=== PATIENT | male | born 1945 | race Caucasian/White ===

== ENCOUNTER → 2018-01-25 13:52 | Outpatient (CLI) | payer OTHER, SELFPAY ==
--- NOTE | 2018-01-28 15:59 | PM.PFT.1 ---
Pulmonary Function Test Referral & Results Date Patient Seen: 01/25/18 Requesting provider: Jermaine Gaston Results: The spirometry demonstrates an FVC of 3.47 L which is 102% of predicted. The FEV1 was measured at 2.04 L which is 79% of predicted. The FEV1/FVC ratio was 59 which is 70% of predicted. Following the administration of bronchodilator there was a 35% improvement in FEF 25-75%. Lung volumes show an SVC of 3.51 L which is wonder 9% of predicted. The diffusing capacity was measured at 40.0 to which is 135% of predicted. The maximum voluntary ventilation was reduced. Interpretation: This study demonstrates perhaps mild obstructive lung disease with some limited evidence of benefit following bronchodilator administration, particularly small airway flow as demonstrated by the improvement in FEF 25-75%.
== END ==
PROVIDERS: Family Provider Family Medicine; PCP Family Medicine; Visit Provider Family Medicine
DX: R06.00 Dyspnea, unspecified (principal)
CPT/HCPCS: 94010; 94060; 94726; 94729

== ENCOUNTER → 2019-05-01 11:25 | Outpatient (CLI) | payer OTHER, SELFPAY ==
[2019-05-01 11:41] LABS: Hematocrit 32.8 % (41-53); Hemoglobin 11.4 g/dL (13.5-17.5); Mean Corpuscular HGB Conc 34.7 % (30-36); Mean Corpuscular Hemoglobin 35.9 PG (26-34); Mean Corpuscular Volume 103.6 fL (80-100); Platelet Count 151 X10^3/uL (150-400); Red Blood Cell Count 3.16 X10^6/uL (4.5-5.9); Red Cell Distribution Width 16.4 % (11.6-14.8)
[2019-05-01 11:43] LABS: Add Manual Diff / Slide Review YES; White Blood Cell Count 1.2 X10^3/uL (4.5-11.0)
[2019-05-01 12:00] LABS: Neutrophils Absolute Manual 336 /uL (3000-5900); Total Cells Counted 100
[2019-05-01 12:01] LABS: Anisocytosis 1+; Poikilocytosis 1+
[2019-05-01 12:12] LABS: Alanine Aminotransferase 24 IU/L (21-72); Albumin 4.5 g/dL (3.5-5.0); Albumin Globulin Ratio 1.8 (1.0-2.8); Alkaline Phosphatase 79 U/L (38-126); Aspartate Aminotransferase 27 IU/L (17-59); BUN Creatinine Ratio 32.5 (6-22); Blood Urea Nitrogen 26 mg/dL (9-20); Calcium 9.7 mg/dL (8.4-10.2); Carbon Dioxide 26 mmol/L (22-32); Chloride 107 mmol/L (98-107); Estimated Glomerular Filt Rate > 60.0 mL/min (>60); Globulin 2.5 g/dL (1.7-4.1); Glucose 92 mg/dL (80-110); HEMOLYSIS < 15 (0-50); Potassium 4.1 mmol/L (3.4-5.1); Sodium 143 mmol/L (137-145)
== END ==
PROVIDERS: PCP Family Medicine
DX: D64.9 Anemia, unspecified (principal)
CPT/HCPCS: 36415; 80053; 85025

== ENCOUNTER → 2019-06-07 15:51 | Oncology outpatient (ONC) | payer OTHER, SELFPAY ==
[2019-03-29 10:02] VITALS: BP 133/86; PULSE 69; RESP 18; TEMP 36.6; O2SAT 98
--- NOTE | 2019-03-29 10:45 | ONC.CONS ---
History of Present Illness - Data of Consult Consult date: 03/29/19 Primary Care Provider: Jermaine Gaston MD - Consult Narrative Narrative: Diagnosis: Anemia and leukopenia History of present illness: Elmer Rosales is a 73 year old male who is referred for further evaluation of leukopenia and anemia. Patient reports that he has previously been in excellent health. Over the last several months, he has developed some worsening shortness of breath. The seems to occur mostly after he has eaten. He is only able to walk 30 or 40 he steps before he needs to stop and rest for a few seconds. He is unable to continue on his way. If he stretches and has not eaten for a couple hours, he is able to exercise. He previously was a distant runner but now power walks. He is able to complete a 2.6 mi loop in about 47 minutes. He does this without any excessive dyspnea. He does this exercise about 3 or 4 days per week. He has had fairly good appetite but has had some satiety. He has not had any nausea or vomiting. Overall, he feels like his caloric intake has dropped over the last year. He has lost almost 15 lb unintentionally. He has not noticed any adenopathy. No fevers chills or sweats. He was on a course of antibiotics for bronchitis. He has not had any other new medications. He has had occasional dizziness or lightheadedness. No new aches or pains. Bowels have been moving normally. He has not been aware of any unusual bleeding but does bruise easily. He is otherwise without complaint. As part of his evaluation, he had a CBC done on March 10. It showed a white count of 3.1, hemoglobin 11.2 hematocrit 32.5 with an MCV of 104. Platelets were 161,000. Differential showed 32% neutrophils 61% lymphocytes. His absolute neutrophil count was only 400. He did have significant number of nucleated red cells. His past medical history is otherwise fairly unremarkable. He hospitalized years ago for a pneumonia. His only medication is now albuterol inhaler. He was on a course of antibiotics. He notes allergies to penicillin and sulfa. He also has a number of food allergies including dairy. 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 He has never smoked. He has rare alcohol use. He is . He does exercise regularly. Family history: The patient is estranged from his family and does not know of any family history of malignancy or blood dyscrasias. CC: Long Olvera MD Home Medications and Allergies Home Medications Medication Instructions Recorded Confirmed Type albuterol sulfate [ProAir HFA] 2 puff INHALATION BID 03/29/19 03/29/19 History inhalational spacing device 03/29/19 03/29/19 History [Aerochamber MV] Allergies Allergy/AdvReac Type Severity Reaction Status Date / Time Penicillins Allergy Unknown Fever Verified 03/29/19 10:05 sulfamethoxazole Allergy Unknown Fever Verified 03/29/19 10:06 [From ] trimethoprim [From ] Allergy Unknown Fever Verified 03/29/19 10:06 Review of Systems Constitutional: weight loss, normal activity level Ears, nose, mouth, throat: lightheadedness, no headaches Cardiovascular: dyspnea on exertion, no chest pain, no palpitations, no orthopnea, no edema Respiratory: no cough Gastrointestinal: change in appetite, no abdominal pain, no vomiting, no constipation, no diarrhea Musculoskeletal: no pain Integumentary: no rash Hematologic/Lymphatic: no enlarged lymph nodes Exam Vital signs: Vital Signs Temp Pulse Resp BP Pulse Ox 03/29/19 10:02 97.8 F 69 18 133/86 98 Intake and Output 03/28/19 03/29/19 03/29/19 23:59 07:59 15:59 Other: Weight 75 kg Patient Weight 03/29/19 23:59 Weight 75 kg - Constitutional positive no acute distress, positive average body habitus - Routine HEENT Exam Head: Present: normocephalic, atraumatic Eye: Present: EOMI, PERRL. Absent: conjunctival icterus, scleral injection ENT: Present: mucous membranes moist, oropharynx clear - Routine Neck Exam Present: supple. Absent: lymphadenopathy, thyromegaly - Routine Chest/Breast/Axilla Exam Axillae: Absent: lymphadenopathy - Routine Respiratory Exam Present: Clear to auscultation bilaterally. Absent: rales, wheezes - Routine Cardiovascular Exam Present: S1, S2, irregular rhythm. Absent: murmur - Routine Abdominal Exam Present: soft, normoactive bowel sounds. Absent: tenderness, organomegaly Palpation/Percussion: Absent: splenomegaly - Routine Extremities Exam Absent: cyanosis, clubbing, edema - Routine Back/Spine Exam Back/Spine: Absent: vertebral tenderness - Routine Skin Exam Present: intact. Absent: petechiae, rash - Routine Neurological Exam Present: alert, oriented X3 - Routine Psychiatric Exam Present: normal affect, normal thought process Results - Imaging Additional studies: Procedures Colonoscopy (10/23/13) Assessment and Plan (1) Anemia Current visit: Yes Status: Acute 73-year-old man with moderate anemia and leukopenia of uncertain duration. He does have nucleated red cells on his slide. He does have some weight loss and shortness of breath as well. It is possible that this may represent B12 or folate deficiency. It is unlikely to be medication related. He does not drink any significant alcohol. There is no history of liver disease. I think it is more likely that this represents intrinsic marrow problem such as myelodysplasia or perhaps myelofibrosis. We will plan on checking a B12 folate, thyroid hormone, reticulocyte count and iron studies. If these do not reveal any underlying etiology, we will plan on a bone marrow biopsy. He will return to clinic in about 2 weeks for follow-up.
[2019-03-29 11:30] LABS: Hematocrit 33.6 % (41-53); Hemoglobin 11.5 g/dL (13.5-17.5); Mean Corpuscular HGB Conc 34.2 % (30-36); Mean Corpuscular Hemoglobin 35.5 PG (26-34); Mean Corpuscular Volume 103.8 fL (80-100); Platelet Count 207 X10^3/uL (150-400); Red Blood Cell Count 3.24 X10^6/uL (4.5-5.9); Red Cell Distribution Width 15.6 % (11.6-14.8)
[2019-03-29 11:33] LABS: Add Manual Diff / Slide Review YES; White Blood Cell Count 1.1 X10^3/uL (4.5-11.0)
[2019-03-29 11:39] LABS: Alanine Aminotransferase 19 IU/L (21-72); Albumin 4.5 g/dL (3.5-5.0); Albumin Globulin Ratio 1.6 (1.0-2.8); Alkaline Phosphatase 75 U/L (38-126); Aspartate Aminotransferase 28 IU/L (17-59); BUN Creatinine Ratio 33.8 (6-22); Bilirubin Total 1.1 mg/dL (0.2-1.3); Blood Urea Nitrogen 27 mg/dL (9-20); Calcium 9.5 mg/dL (8.4-10.2); Carbon Dioxide 25 mmol/L (22-32); Chloride 107 mmol/L (98-107); Estimated Glomerular Filt Rate > 60.0 mL/min (>60); Globulin 2.9 g/dL (1.7-4.1); Glucose 120 mg/dL (80-110); HEMOLYSIS < 15 (0-50); Potassium 4.2 mmol/L (3.4-5.1); Sodium 142 mmol/L (137-145); Total Protein 7.4 g/dL (6.3-8.2)
[2019-03-29 11:42] LABS: Reticulocyte Count, Percent 1.1 % (0.87-2.60)
--- NOTE | 2019-03-29 12:09 | PC.NURSE ---
Dr. Olvera aware of critical lab result WBC 1.1, no new orders received.
[2019-03-29 12:18] LABS: Neutrophils Absolute Manual 418 /uL (3000-5900); Total Cells Counted 50
[2019-03-29 12:19] LABS: Anisocytosis 1+; Poikilocytosis 1+
[2019-03-29 12:34] LABS: Thyroid Stimulating Hormone 1.38 uIU/mL (0.47-4.68)
[2019-03-29 12:45] LABS: Folate 15.2 ng/mL (2.76-20.0); Vitamin B12 463 pg/mL (239-931)
[2019-04-19 14:21] LABS: Hematocrit 33.3 % (41-53); Hemoglobin 11.5 g/dL (13.5-17.5); Mean Corpuscular HGB Conc 34.7 % (30-36); Mean Corpuscular Hemoglobin 35.3 PG (26-34); Mean Corpuscular Volume 101.9 fL (80-100); Platelet Count 189 X10^3/uL (150-400); Red Blood Cell Count 3.26 X10^6/uL (4.5-5.9); Red Cell Distribution Width 16.4 % (11.6-14.8)
[2019-04-19 14:23] LABS: White Blood Cell Count 1.1 X10^3/uL (4.5-11.0)
[2019-04-19 14:41] LABS: Neutrophils Absolute Manual 352 /uL (3000-5900); Total Cells Counted 50
[2019-04-19 14:42] LABS: Anisocytosis 1+; Macrocytosis 1+; Poikilocytosis 1+
--- NOTE | 2019-04-19 14:55 | ONC.PROCEDUR ---
Date of procedure: 04/19/19 Diagnosis: Anemia and leukopenia Onc Bone Marrow: bone marrow biopsy and aspiration Procedure: Patient was placed in prone position. His left posterior iliac crest was prepped with Betadine. He was anesthetized with approximately 6 cc of 2% lidocaine. A scalpel blade was used to make a small skin incision. A Jamshidi needle was used to obtain a bone marrow aspirate and core biopsy. Samples were sent for routine histology as well as cytogenetics and flow cytometry. The patient tolerated the procedure well without any complication. He will return to clinic in 1-2 weeks for follow-up.
[2019-04-19 15:12] VITALS: BP 164/85; PULSE 69; RESP 18; TEMP 36.7; O2SAT 98
--- NOTE | 2019-04-19 15:58 | PC.NURSE ---
Dr. montelongo aware of critical WBC 1.1, no new orders received.
--- NOTE | 2019-05-01 12:11 | PC.NURSE ---
CV-WBC: Print out of today's CBC put for review on Dr. Olvera's desk.
[2019-05-03 09:38] VITALS: BP 140/74; PULSE 56; RESP 18; TEMP 36.8; O2SAT 98
--- NOTE | 2019-05-03 10:15 | ONC.PN ---
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 He had presented with increasing dyspnea on exertion as well as dizziness. CBC disclosed a mild anemia and a marked leukopenia. He had a bone marrow biopsy performed a few weeks ago. Since then, he has actually been feeling a little bit better. He has not had any fevers but does have some chills. His appetite has been fair. No nausea or vomiting. He has not noticed any unusual bleeding or bruising. His dyspnea seems to have improved somewhat. His past medical history is otherwise fairly unremarkable. He hospitalized years ago for a pneumonia. His only medication is now albuterol inhaler. He is a Confucianism. Home Medications and Allergies Home Medications Medication Instructions Recorded Confirmed Type albuterol sulfate [ProAir HFA] 2 puff INHALATION BID 03/29/19 03/29/19 History inhalational spacing device 03/29/19 03/29/19 History [Aerochamber MV] Allergies Allergy/AdvReac Type Severity Reaction Status Date / Time Penicillins Allergy Unknown Fever Verified 03/29/19 10:05 sulfamethoxazole Allergy Unknown Fever Verified 03/29/19 10:06 [From ] trimethoprim [From ] Allergy Unknown Fever Verified 03/29/19 10:06 Exam Vital signs: Vital Signs Temp Pulse Resp BP Pulse Ox 05/03/19 09:38 98.2 F 56 L 18 140/74 98 Intake and Output 05/02/19 05/03/19 05/03/19 23:59 07:59 15:59 Other: Weight 74 kg Patient Weight 05/03/19 23:59 Weight 74 kg - Constitutional positive no acute distress, positive average body habitus Comments: He is not further examined. Results - Labs Laboratory Last Values WBC 1.1 X10^3/uL (4.5-11.0) L* 04/19/19 14:06 RBC 3.26 X10^6/uL (4.5-5.9) L 04/19/19 14:06 Hgb 11.5 g/dL (13.5-17.5) L 04/19/19 14:06 Hct 33.3 % (41-53) L 04/19/19 14:06 MCV 101.9 fL (80-100) H 04/19/19 14:06 MCH 35.3 PG (26-34) H 04/19/19 14:06 MCHC 34.7 % (30-36) 04/19/19 14:06 RDW 16.4 % (11.6-14.8) H 04/19/19 14:06 Plt Count 189 X10^3/uL (150-400) 04/19/19 14:06 Neut % (Auto) Not Reportable 03/29/19 11:04 Lymph % (Auto) Not Reportable 03/29/19 11:04 [place] % (Auto) Not Reportable 03/29/19 11:04 Eos % (Auto) Not Reportable 03/29/19 11:04 Baso % (Auto) Not Reportable 03/29/19 11:04 Lymph # (Auto) Not Reportable 03/29/19 11:04 [place] # (Auto) Not Reportable 03/29/19 11:04 Baso # (Auto) Not Reportable 03/29/19 11:04 Total Counted 50 04/19/19 14:06 Seg Neutrophils % 30.0 % (38-70) L 04/19/19 14:06 Band Neutrophils % 2.0 % (3-7) L 04/19/19 14:06 Lymphocytes % (Manual) 60.0 % (25-45) H 04/19/19 14:06 Atypical Lymphs % 4.0 % (-0) H 03/29/19 11:04 Monocytes % (Manual) 2.0 % (2-11) 04/19/19 14:06 Eosinophils % (Manual) 6.0 % (2-4) H 04/19/19 14:06 Neutrophils # (Manual) 352 /uL (1905-5969) L 04/19/19 14:06 RBC Morphology See below 04/19/19 14:06 Poikilocytosis 1+ H 04/19/19 14:06 Anisocytosis 1+ H 04/19/19 14:06 Macrocytosis 1+ H 04/19/19 14:06 Smear Path Review 04/19/19 14:06 Percent Retic 1.1 % (0.87-2.60) 03/29/19 11:04 Sodium 142 mmol/L (137-145) 03/29/19 11:04 Potassium 4.2 mmol/L (3.4-5.1) 03/29/19 11:04 Chloride 107 mmol/L (98-107) 03/29/19 11:04 Carbon Dioxide 25 mmol/L (22-32) 03/29/19 11:04 BUN 27 mg/dL (9-20) H 03/29/19 11:04 Creatinine 0.80 mg/dL (0.66-1.25) 03/29/19 11:04 Estimated GFR > 60.0 mL/min (>60) 03/29/19 11:04 BUN/Creatinine Ratio 33.8 (6-22) H 03/29/19 11:04 Glucose 120 mg/dL (80-110) H 03/29/19 11:04 Calcium 9.5 mg/dL (8.4-10.2) 03/29/19 11:04 Ferritin 421.0 ng/mL (17.9-464) 03/29/19 11:04 Total Bilirubin 1.1 mg/dL (0.2-1.3) 03/29/19 11:04 AST 28 IU/L (17-59) 03/29/19 11:04 ALT 19 IU/L (21-72) L 03/29/19 11:04 Alkaline Phosphatase 75 U/L (38-126) 03/29/19 11:04 Total Protein 7.4 g/dL (6.3-8.2) 03/29/19 11:04 Albumin 4.5 g/dL (3.5-5.0) 03/29/19 11:04 Globulin 2.9 g/dL (1.7-4.1) 03/29/19 11:04 Albumin/Globulin Ratio 1.6 (1.0-2.8) 03/29/19 11:04 Vitamin B12 463 pg/mL (239-931) 03/29/19 11:04 Folate 15.2 ng/mL (2.76-20.0) 03/29/19 11:04 TSH 1.38 uIU/mL (0.47-4.68) 03/29/19 11:04 - Imaging Additional studies: Procedures Colonoscopy (10/23/13) Assessment and Plan (1) Anemia Current visit: Yes Status: Acute 73-year-old man with moderate anemia and leukopenia of uncertain duration. Today, reviewed the results of his recent bone marrow biopsy. Unfortunately this shows evidence of myelodysplasia. He did have an elevated blast count at 12% by flow cytometry. 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 He has significant neutropenia but only a mild anemia and his platelet count is normal. The revised IPSS puts him into a very high risk group was 6.5 points. This has a predicted median survival of 0.8 years and a 25% risk of progression to AML in about 9 months. We discussed treatment options today. The only curative therapy would be allogeneic stem cell transplant. His age is somewhat high for this, although his other health has been fairly good. We talked about the potential for clinical trials. We also talked about the potential for azacitidine to decrease the risk for transformation to AML is and improve cytopenias. This also has been shown to improve survival but is not a cure. Frequently, blood counts can worsen before they improve. All of these treatments as well as his underlying disease have significant risk for anemia. He is a Confucianism and will not take transfusions. Growth factors such as erythropoietin are sometimes used to decrease the anemia in MDS. Patients who respond best to growth factor support tend to have lower risk disease and lower blast count. I think it is unlikely that he would respond to EPO. He is not certain at this point that he would want to pursue any of these therapies but does wish some time to think about it. We did talk about the possibility of supportive care. Patients with myelodysplasia typically are symptomatic has a result of cytopenias. Transfusions can help mitigate symptoms. However, he would not be open to that. Infections can be significant or life-threatening complication. Antibiotics can be used in those settings. We did make referral to [facility] for a 2nd opinion. He will return to clinic in about 4 weeks for follow-up.
--- NOTE | 2019-05-08 10:15 | ONC.SCHED ---
Sending referral over to [facility] today
[2019-05-30 13:08] VITALS: BP 129/80; PULSE 77; RESP 16; TEMP 36.3; O2SAT 99
--- NOTE | 2019-05-30 13:32 | ONC.PN ---
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 He had presented with increasing dyspnea on exertion as well as dizziness. CBC disclosed a mild anemia and a marked leukopenia. He had a bone marrow biopsy performed in April that showed myelodysplasia. He had a between 10 and 15% blasts senna complex karyotype. His IPSS score was very high. Since his last visit here, he was seen in [place] for 2nd opinion. They talked about potential therapeutic options including stem cell transplant, trial of chemotherapy with azacitidine, genetic testing to see if he might be eligible for a clinical trial. They also talked about supportive care with growth factors. They did review that there is a risk for anemia based on his underlying disease and with any therapy design to control the disease. He notes some ongoing fatigue. It has been stable. His appetite has been fair. No nausea or vomiting. He denies any unusual bleeding or bruising. He has had some chills but no fevers or sweats. No recent infections. He is not having any pain. He denies any other changes in his health. His past medical history is otherwise fairly unremarkable. He hospitalized years ago for a pneumonia. His only medication is now albuterol inhaler. He is a Buddhism. - Patient Self-Reported Symptoms SR Constitution: Chills SR respiratory issues: Shortness of breath, Mucous SR Genitourinary issues: Frequent urination SR Musculoskeletal issues: Difficulty walking Home Medications and Allergies Home Medications Medication Instructions Recorded Confirmed Type albuterol sulfate [ProAir HFA] 2 puff INHALATION BID 03/29/19 05/30/19 History inhalational spacing device 03/29/19 05/30/19 History [Aerochamber MV] Allergies Allergy/AdvReac Type Severity Reaction Status Date / Time Penicillins Allergy Unknown Fever Verified 03/29/19 10:05 sulfamethoxazole Allergy Unknown Fever Verified 03/29/19 10:06 [From ] trimethoprim [From ] Allergy Unknown Fever Verified 03/29/19 10:06 Exam Vital signs: Vital Signs Temp Pulse Resp BP Pulse Ox 05/30/19 13:08 97.4 F L 77 16 129/80 99 Intake and Output 05/29/19 05/30/19 05/30/19 23:59 07:59 15:59 Other: Weight 74 kg Patient Weight 05/30/19 23:59 Weight 74 kg - Constitutional positive no acute distress, positive average body habitus Comments: He is not further examined. Results - Labs Laboratory Last Values WBC 1.1 X10^3/uL (4.5-11.0) L* 04/19/19 14:06 RBC 3.26 X10^6/uL (4.5-5.9) L 04/19/19 14:06 Hgb 11.5 g/dL (13.5-17.5) L 04/19/19 14:06 Hct 33.3 % (41-53) L 04/19/19 14:06 MCV 101.9 fL (80-100) H 04/19/19 14:06 MCH 35.3 PG (26-34) H 04/19/19 14:06 MCHC 34.7 % (30-36) 04/19/19 14:06 RDW 16.4 % (11.6-14.8) H 04/19/19 14:06 Plt Count 189 X10^3/uL (150-400) 04/19/19 14:06 Neut % (Auto) Not Reportable 03/29/19 11:04 Lymph % (Auto) Not Reportable 03/29/19 11:04 [place] % (Auto) Not Reportable 03/29/19 11:04 Eos % (Auto) Not Reportable 03/29/19 11:04 Baso % (Auto) Not Reportable 03/29/19 11:04 Lymph # (Auto) Not Reportable 03/29/19 11:04 [place] # (Auto) Not Reportable 03/29/19 11:04 Baso # (Auto) Not Reportable 03/29/19 11:04 Total Counted 50 04/19/19 14:06 Seg Neutrophils % 30.0 % (38-70) L 04/19/19 14:06 Band Neutrophils % 2.0 % (3-7) L 04/19/19 14:06 Lymphocytes % (Manual) 60.0 % (25-45) H 04/19/19 14:06 Atypical Lymphs % 4.0 % (-0) H 03/29/19 11:04 Monocytes % (Manual) 2.0 % (2-11) 04/19/19 14:06 Eosinophils % (Manual) 6.0 % (2-4) H 04/19/19 14:06 Neutrophils # (Manual) 352 /uL (3800-8896) L 04/19/19 14:06 RBC Morphology See below 04/19/19 14:06 Poikilocytosis 1+ H 04/19/19 14:06 Anisocytosis 1+ H 04/19/19 14:06 Macrocytosis 1+ H 04/19/19 14:06 Smear Path Review 04/19/19 14:06 Percent Retic 1.1 % (0.87-2.60) 03/29/19 11:04 Sodium 142 mmol/L (137-145) 03/29/19 11:04 Potassium 4.2 mmol/L (3.4-5.1) 03/29/19 11:04 Chloride 107 mmol/L (98-107) 03/29/19 11:04 Carbon Dioxide 25 mmol/L (22-32) 03/29/19 11:04 BUN 27 mg/dL (9-20) H 03/29/19 11:04 Creatinine 0.80 mg/dL (0.66-1.25) 03/29/19 11:04 Estimated GFR > 60.0 mL/min (>60) 03/29/19 11:04 BUN/Creatinine Ratio 33.8 (6-22) H 03/29/19 11:04 Glucose 120 mg/dL (80-110) H 03/29/19 11:04 Calcium 9.5 mg/dL (8.4-10.2) 03/29/19 11:04 Ferritin 421.0 ng/mL (17.9-464) 03/29/19 11:04 Total Bilirubin 1.1 mg/dL (0.2-1.3) 03/29/19 11:04 AST 28 IU/L (17-59) 03/29/19 11:04 ALT 19 IU/L (21-72) L 03/29/19 11:04 Alkaline Phosphatase 75 U/L (38-126) 03/29/19 11:04 Total Protein 7.4 g/dL (6.3-8.2) 03/29/19 11:04 Albumin 4.5 g/dL (3.5-5.0) 03/29/19 11:04 Globulin 2.9 g/dL (1.7-4.1) 03/29/19 11:04 Albumin/Globulin Ratio 1.6 (1.0-2.8) 03/29/19 11:04 Vitamin B12 463 pg/mL (239-931) 03/29/19 11:04 Folate 15.2 ng/mL (2.76-20.0) 03/29/19 11:04 TSH 1.38 uIU/mL (0.47-4.68) 03/29/19 11:04 - Imaging Additional studies: Procedures Colonoscopy (10/23/13) Assessment and Plan (1) Anemia Current visit: Yes Status: Acute 73-year-old man with moderate anemia and leukopenia of uncertain duration. His recent bone marrow biopsy shows evidence of myelodysplasia. He did have an elevated blast count at 12% by flow cytometry. 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 He has significant neutropenia but only a mild anemia and his platelet count is normal. The revised IPSS puts him into a very high risk group was 6.5 points. This has a predicted median survival of 0.8 years and a 25% risk of progression to AML in about 9 months. We reviewed treatment options today. The only curative therapy would be allogeneic stem cell transplant this is not a practical option for him however. We also talked about the potential for azacitidine to decrease the risk for transformation to AML is and improve cytopenias. This also has been shown to improve survival but is not a cure. Frequently, blood counts can worsen before they improve. All of these treatments as well as his underlying disease have significant risk for anemia. He is a Buddhism and will not take transfusions. Growth factors such as erythropoietin are sometimes used to decrease the anemia in MDS. These are generally well tolerated with minimal side effects. I think the likelihood of him responding however is fairly low. He did request a consultation with Dr. Wilbur Sams at [facility]. He apparently is doing bloodless treatment for myelodysplasia. He will call us after his consultation to arrange for further follow-up.
--- NOTE | 2019-06-07 10:52 | ONC.SCHED ---
[facility] denied the referral for patient to go to [facility] as the provider is not in Network. I let DR. Olvera know and he said to let the patient know and they can decide from there what they want to do. I spoke with the spouse who is on the auth to discuss and she said that she will call [employer] to see what their out of network benefits are. She said she may end up cancelling the apt. at [facility] if they have to pay a lot of money.
--- NOTE | 2019-06-27 08:53 | ONC.SCHED ---
Received a call from [facility], they asked if we would put in more visits to them. However, [facility] has denied the request but did allow 1 visit. [facility] is not contracted with [facility]. The patient is aware and they are changing insurance companies to [employer] at the start of the new year. Hopefully when that happens they will let us know so we can send the referral again. I did let the patient know to keep us posted when their insurance changes.
== END ==
PROVIDERS: Family Provider Family Medicine; PCP Family Medicine
DX: D46.C Myelodysplastic syndrome with isolated del(5q) chromosomal abnormality (principal); D70.9 Neutropenia, unspecified
CPT/HCPCS: 36415; 38222; 80053; 82607; 82668; 82728; 82746; 84443; 85025; 85045; 99000; 99204; 99214

== ENCOUNTER → 2019-08-02 12:23 | Outpatient (CLI) | payer MEDICARE, SELFPAY ==
[2019-08-02 12:35] VITALS: BP 143/93; PULSE 85; RESP 16; TEMP 36.4; O2SAT 100
[2019-08-02] MEDS: DARBEPOETIN 300 MCG/0.6 ML SYRINGE SUBCUT (12:51)
== END ==
PROVIDERS: PCP Family Medicine; Visit Provider Family Medicine
DX: D46.C Myelodysplastic syndrome with isolated del(5q) chromosomal abnormality (principal); D70.9 Neutropenia, unspecified
CPT/HCPCS: 96372; J0881